=== PATIENT | female | born 1990 | race Caucasian/White ===

== ENCOUNTER 2016-06-17 15:37 | Emergency (ER) | payer MEDICAID ==
[~2016-06-17] VITALS: Ht 167.6 cm; Wt 45.9 kg
[~2016-06-17 15:37] MED LIST: OXYC5CAP4 PO
[2016-06-17 15:54] VITALS: BP 102/74
[2016-06-17] MEDS ORDERED: CLINDAMYCIN PMX 900MG/50ML 50 ML IVPB ONE (16:30)
[2016-06-17] MEDS ORDERED: SODIUM CHLORIDE 0.9% 1,000ML IVBOLUS ONE (16:30)
[2016-06-17] MEDS ORDERED: SODIUM CHLORIDE FLUSH 10ML SYR IVF ONE (16:30)
[2016-06-17 16:57] LABS: HEMOGLOBIN 13.8 g/dL (11.7-16.4)
[2016-06-17 17:13] LABS: ASPARTATE AMINO TRANSFERASE 20 U/L (15-37); BLOOD UREA NITROGEN 12 mg/dL (7-18)
== END 2016-06-17 20:34 | disposition left against medical advice (07) ==
LOC: ED 17:10
DX: F11.90 Opioid use, unspecified, uncomplicated (principal); L02.416 Cutaneous abscess of left lower limb
CPT/HCPCS: 36415; 80053; 83605; 84145; 85025; 87040; 93005